=== PATIENT | male | born 1990 | race Two or more races ===

== ENCOUNTER 2018-11-21 20:40 | Emergency (ER) | payer SELFPAY ==
[2018-11-21] MEDS ORDERED: IBUPROFEN 800 MG TABLET PO ONE (21:17)
--- NOTE | 2018-11-21 21:19 | ER Document Report ---
ED Medical Screen (RME) - General Chief Complaint: Fever Stated Complaint: BACK PAIN,FEVER Time Seen by Provider: 11/21/18 21:12 Mode of Arrival: Ambulatory Information source: Patient Notes: This 28-year-old male primarily Taiwanese-speaking but does understand and speaks some Angolan presents emergency department with sore throat body aches neck pain bilateral flank pain abdominal pain and vomiting since yesterday. Reports he took Tylenol at approximately 1400 today. Temperature 102.8 patient is tachy. Tonsillar exudate noted. I have greeted and performed a rapid initial assessment of this patient. A comprehensive ED assessment and evaluation of the patient, analysis of test results and completion of the medical decision making process will be conducted by additional ED providers. Dictation of this chart was performed using voice recognition software; therefore, there may be some unintended grammatical errors. TRAVEL OUTSIDE OF THE [place] IN LAST 30 DAYS: No - Related Data Allergies/Adverse Reactions: No Known Allergies Allergy (Unverified 11/21/18 20:44) Physical Exam - Vital signs Vitals: Temp Pulse Resp BP Pulse Ox 102.8 F H 112 H 18 143/58 H 97 11/21/18 20:45 11/21/18 20:45 11/21/18 20:45 11/21/18 20:45 11/21/18 20:45 Course - Vital Signs Vital signs: Temp Pulse Resp BP Pulse Ox 102.8 F H 112 H 18 143/58 H 97 11/21/18 20:45 11/21/18 20:45 11/21/18 20:45 11/21/18 20:45 11/21/18 20:45
[2018-11-21 22:12] LABS: HEMATOCRIT 43.6 % (37.9-51.0); HEMOGLOBIN 14.8 g/dL (13.5-17.0); MEAN CORPUSCULAR HEMOGLOBIN 28.9 pg (27.0-33.4); MEAN CORPUSCULAR HGB CONC 33.9 g/dL (32.0-36.0); MEAN CORPUSCULAR VOLUME 85 fl (80-97); PLATELET COUNT 324 10^3/uL (150-450); RED BLOOD COUNT 5.12 10^6/uL (4.35-5.55); RED CELL DISTRIBUTION WIDTH 13.4 % (11.5-14.0); WHITE BLOOD COUNT 22.4 10^3/uL (4.0-10.5)
[2018-11-21 22:19] LABS: ALBUMIN 4.5 g/dL (3.5-5.0); ALKALINE PHOSPHATASE 108 U/L (38-126); ANION GAP 14 (5-19); ASPARTATE AMINO TRANSFERASE 19 U/L (17-59); BILIRUBIN,DIRECT 0.1 mg/dL (0.0-0.4); BILIRUBIN,TOTAL 0.8 mg/dL (0.2-1.3); BLOOD UREA NITROGEN 9 mg/dL (7-20); CALCIUM 9.5 mg/dL (8.4-10.2); CARBON DIOXIDE 26 mmol/L (22-30); CHLORIDE 98 mmol/L (98-107); GLUCOSE 115 mg/dL (75-110); POTASSIUM 3.5 mmol/L (3.6-5.0); TOTAL PROTEIN 7.2 g/dL (6.3-8.2)
[2018-11-21 22:40] LABS: ABSOLUTE LYMPHOCYTES# (MANUAL) 1.6 10^3/uL (0.5-4.7); ABSOLUTE MONOCYTES # (MANUAL) 1.3 10^3/uL (0.1-1.4); BAND NEUTROPHILS % (MANUAL) 5 % (3-5); BASOPHILS % (MANUAL) 1 % (0-2); EOSINOPHILS % (MANUAL) 0 % (0-6); LYMPHOCYTES % (MANUAL) 7 % (13-45); MONOCYTES % (MANUAL) 6 % (3-13); PLATELET COMMENT ADEQUATE; SEGMENTED NEUTROPHILS % (MAN) 81 % (42-78); STOMATOCYTES 2+; TOTAL CELLS COUNTED 100
[2018-11-21 23:20] LABS: APPEARANCE,URINE SLIGHTLY-CLOUDY; BILIRUBIN,URINE NEGATIVE (NEGATIVE); COLOR,URINE YELLOW; GLUCOSE, URINE NEGATIVE (NEGATIVE); KETONES,URINE NEGATIVE (NEGATIVE); LEUKOCYTE ESTERASE,URINE NEGATIVE (NEGATIVE); NITRITE,URINE NEGATIVE (NEGATIVE); PROTEIN,URINE 100 mg/dL (NEGATIVE); URINE SPECIFIC GRAVITY 1.027
[2018-11-22 00:54] VITALS: BP 109/61
[2018-11-22] MEDS ORDERED: PENICILLIN G BENZATHINE 1.2 MILLION UNIT/2 ML DISP.SYRIN IM ONE (01:20)
[2018-11-22] MEDS ORDERED: DEXAMETHASONE SOD PHOS INJ 10 MG/1 ML VIAL IM ONE (01:20)
--- NOTE | 2018-11-22 01:26 | ER Document Report ---
ED General - General Chief Complaint: Fever Stated Complaint: BACK PAIN,FEVER Time Seen by Provider: 11/21/18 21:12 Mode of Arrival: Ambulatory Notes: 28 year old male complaining of fever, headache, vomiting, upper abdominal pain, back pain and sore throat since yesterday. States that he has some pain in his neck that is equal anteriorly as it is posteriorly. No significant change with flexion or extension of his neck. Complains of pain when he swallows but denies any difficulty swallowing. States that all of the symptoms are improved but not completely resolved when his fever resolves. TRAVEL OUTSIDE OF THE [place] IN LAST 30 DAYS: No - Related Data Allergies/Adverse Reactions: No Known Allergies Allergy (Unverified 11/21/18 20:44) Past Medical History - General Information source: Patient - Social History Smoking Status: Never Smoker Frequency of alcohol use: None Drug Abuse: None Family History: Reviewed & Not Pertinent Patient has suicidal ideation: No Patient has homicidal ideation: No Review of Systems - Review of Systems Constitutional: See HPI EENT: See HPI Cardiovascular: No symptoms reported Respiratory: No symptoms reported. denies: Cough Gastrointestinal: See HPI -: Yes All other systems reviewed and negative Physical Exam - Vital signs Vitals: Temp Pulse Resp BP Pulse Ox 102.8 F H 112 H 18 143/58 H 97 11/21/18 20:45 11/21/18 20:45 11/21/18 20:45 11/21/18 20:45 11/21/18 20:45 Interpretation: Tachycardic, Febrile - Notes Notes: GENERAL: Alert, interacts well. No acute distress. HEAD: Normocephalic, atraumatic EYES: Pupils equal, round and reactive to light, extraocular movements intact. ENT: Oral mucosa moist, tongue midline. Enlarged tonsils, tonsillar exudate, it is symmetric, tonsils are approximately 3+, there is cobblestoning in the posterior oropharynx. No pooling of secretions, no drooling. NECK: Full range of motion, supple, trachea midline. None said during the examination, rotates from side to side without difficulty. No meningismus. LUNGS: Clear to auscultation bilaterally, no wheezes, rales or rhonchi, no respiratory distress. HEART: Regular rate and rhythm, no murmurs, gallops, rubs. ABDOMEN: Soft, nontender, nondistended, bowel sounds present in all 4 quadrants. EXTREMITIES: Moves all 4 extremities spontaneously, no edema, radial and dorsalis pedis pulses 2/4 bilaterally. No cyanosis. NEUROLOGICAL: Alert and oriented x3, normal speech. PSYCH: Normal mood, normal affect. SKIN: Warm, Dry, normal turgor, no rashes or lesions noted. Course - Re-evaluation Re-evalutation: 11/22/18 01:24 CBC shows leukocytosis at 22.4, otherwise unremarkable, CMP unremarkable, urinalysis does not show any signs of infection or ketones. Rapid strep is positive. Strep culture has been sent. Blood cultures are pending. After the patient's fever has resolved with ibuprofen the patient is feeling much better. I have very low suspicion for meningitis at this time as the patient has full range of motion of the neck, has no difficulty adjusting himself in the bed and states that his neck hurts as badly anteriorly as it does posteriorly. Patient was offered oral antibiotics versus IM penicillin. Patient has agreed to accept IM penicillin as well as Decadron for symptomatic relief. Patient will be discharged home, advised on antipyretics and asked to return if he worsens or has no improvement within 2 days. - Vital Signs Vital signs: Temp Pulse Resp BP Pulse Ox 98.1 F 82 18 109/61 99 11/22/18 00:53 11/22/18 00:53 11/22/18 00:53 11/22/18 00:53 11/22/18 00:53 - Laboratory Result Diagrams: 11/21/18 21:40 11/21/18 21:40 Laboratory results interpreted by me: 11/21/18 11/21/18 11/21/18 21:40 21:40 23:02 WBC 22.4 H Seg Neuts % (Manual) 81 H Lymphocytes % (Manual) 7 L Abs Neuts (Manual) 19.3 H Potassium 3.5 L Glucose 115 H Urine Protein 100 H Urine Urobilinogen 4.0 H Discharge - Discharge Clinical Impression: Strep pharyngitis Condition: Stable Disposition: HOME, SELF-CARE Instructions: Strep Throat ([facility]) Additional Instructions: Strep Throat Your sore throat is due to the streptococcus germ (strep throat). Strep throat usually makes you feel quite ill with fever and aches, headache, swollen sore throat, and tender bumps under the angles of the jaw. Strep throat requires antibiotic treatment. Although the sore throat may go away by itself, complications such as rheumatic fever, kidney disease, or throat abscess can occur. Today we gave you a shot of antibiotics to treat this. You do not need any more pills by mouth. We also gave you a shot of steroid to decrease the pain in the swelling. Take acetaminophen or ibuprofen for pain and fever. Sip frequent clear liquids, or use popsicles or ice chips. Anesthetic sprays or lozenges may help. Make sure the air in the room is not too dry. Avoid using decongestants or antihistamines. Call the doctor if there is no improvement in three days, or if you have difficulty breathing, increasing throat pain, high fever, rash, difficulty moving your neck or frequent vomiting. Please use ibuprofen (Motrin or Advil) 600-800 mg every 8 hours as needed for pain or fever. You may also use acetaminophen (Tylenol) 1000 mg every 4-6 hours as needed for pain or fever. Please be aware that many medications contain acetaminophen, do not exceed a total of 1000 mg of acetaminophen every 6 hours. Forms: Return to Work Print Language: Nepali
== END 2018-11-22 01:57 | disposition home or self-care (01) ==
LOC: ER 20:40
DX: J02.0 Streptococcal pharyngitis (principal); R50.9 Fever, unspecified; R51 Headache; R11.10 Vomiting, unspecified; R10.10 Upper abdominal pain, unspecified; M54.9 Dorsalgia, unspecified; R13.10 Dysphagia, unspecified
CPT/HCPCS: 36415; 87040; 87070; 87880; 85025; 87077; 80053; 81001; 83605; J0561; J1100; 96372; 99283